=== PATIENT | male | born 1990 | race Caucasian/White ===

== ENCOUNTER 2017-12-21 18:01 | Emergency (ER) | payer OTHER ==
[2017-12-21] MEDS ORDERED: LIDOCAINE 5% (700 MG) TRANSDERMAL ADH..PATCH TP ONE (21:17)
[2017-12-21] MEDS ORDERED: KETOROLAC TROMETHAMINE 60 MG/2 ML SDV IM ONE (21:17)
--- NOTE | 2017-12-21 21:22 | ER Document Report ---
ED General - General Chief Complaint: Back Pain Stated Complaint: BACK PAIN Time Seen by Provider: 12/21/17 20:56 Notes: Patient is a 27-year-old male without chronic medical problems who presents with 3 days of right shoulder, right clavicle and right periscapular muscular pain. Describes as a throbbing, aching pain and is concerned about clicking in his shoulder when he moves the shoulder he states that he sustained an injury at work several months ago which a box fell on top of his right shoulder and crumpled him to the ground. He states that since that time he has had some discomfort to this area but that it became more concerning when he heard clicking in the right shoulder over the last several days. Nothing seemed to improve his pain and moving the shoulder worsens the pain. He does note some intermittent paresthesias over the right forearm and hand denies any loss of sensation, weakness or numbness. He has not seen his general doctor regarding today's concerns. No new injury to the area. TRAVEL OUTSIDE OF THE [place] IN LAST 30 DAYS: No - Related Data Allergies/Adverse Reactions: No Known Allergies Allergy (Unverified 12/21/17 18:05) Past Medical History - General Information source: Patient - Social History Smoking Status: Current Every Day Smoker Chew tobacco use (# tins/day): No Frequency of alcohol use: Rare Drug Abuse: None Lives with: Spouse/Significant other Family History: Reviewed & Not Pertinent Patient has suicidal ideation: No Patient has homicidal ideation: No Renal/ Medical History: Denies: Hx Peritoneal Dialysis Review of Systems - Review of Systems Notes: Constitutional: Negative for fever. HENT: Negative for sore throat. Eyes: Negative for visual changes. Cardiovascular: Negative for chest pain. Respiratory: Negative for shortness of breath. Gastrointestinal: Negative for abdominal pain, vomiting or diarrhea. Genitourinary: Negative for dysuria. Musculoskeletal: Positive for right neck and right shoulder pain Skin: Negative for rash. Neurological: Negative for headaches, weakness or numbness. 10 point ROS negative except as marked above and in HPI. Physical Exam - Vital signs Vitals: Temp Pulse Resp BP Pulse Ox 98.0 F 94 18 136/83 H 99 12/21/17 18:10 12/21/17 18:10 12/21/17 18:10 12/21/17 18:10 12/21/17 18:10 Interpretation: Normal Notes: PHYSICAL EXAMINATION: GENERAL: Well-appearing, well-nourished and in no acute distress. HEAD: Atraumatic, normocephalic. EYES: Pupils equal round and reactive to light, extraocular movements intact, sclera anicteric, conjunctiva are normal. ENT: nares patent, oropharynx clear without exudates. Moist mucous membranes. NECK: Normal range of motion, supple without lymphadenopathy LUNGS: Breath sounds clear to auscultation bilaterally and equal. No wheezes rales or rhonchi. HEART: Regular rate and rhythm without murmurs ABDOMEN: Soft, nontender, normoactive bowel sounds. No guarding, no rebound. No masses appreciated. EXTREMITIES: Normal range of motion, no pitting or edema. No cyanosis. Pain on palpation of the right trapezius, right sternomastoid and periscapular muscles. No deformity or swelling. NEUROLOGICAL: No focal neurological deficits. Moves all extremities spontaneously and on command. RMU motor and sensory distribution intact on the right. 5 out of 5 biceps and triceps strength on the right, normal on left. PSYCH: Normal mood, normal affect. SKIN: Warm, Dry, normal turgor, Course - Re-evaluation Re-evalutation: 12/21/17 21:18 Patient presents with 3-4 days of clicking in his right shoulder with associated severe pain over his trapezius, right sternal cleidomastoid and right periscapular muscles. RMU motor and sensory distribution is intact. 2+ radial pulse. 5 out of 5 biceps and triceps strength. He does have paresthesias of the forearm. Symptoms started after he had an injury at work several months ago but have become worse over the last several days. Suspect likely muscular skeletal spasming with associated nerve irritation of the shoulder girdle. Will proceed with a shoulder x-ray to ensure that there are no acute fractures and plan for conservative measures with NSAIDs and topical lidocaine. I do not clinically suspect an acute cervical spine injury, acute fracture, or any other alternative life-threatening condition at this time point based on exam and history. - Vital Signs Vital signs: Temp Pulse Resp BP Pulse Ox 98.0 F 94 18 136/83 H 99 12/21/17 18:10 12/21/17 18:10 12/21/17 18:10 12/21/17 18:10 12/21/17 18:10 - Diagnostic Test Radiology reviewed: Image reviewed, Reports reviewed Radiology results interpreted by me: 12/21/17 21:20 Right shoulder x-ray: No acute fracture or dislocation Discharge - Discharge Clinical Impression: Neck pain on right side Right shoulder pain Qualifiers: Chronicity: acute Qualified Code(s): M25.511 - Pain in right shoulder Condition: Good Disposition: HOME, SELF-CARE Additional Instructions: Your pain appears related to muscle spasms in your shoulder girdle as well as irritation of the nerves in your shoulder. For your pain: Take ibuprofen 600 mg and acetaminophen 1000 mg every 6 hours together as needed for pain. In addition to this, purchased the product that is sold [id number] cold Aspercreme with lidocaine. Apply to the affected area per bottle instructions. You should also apply heat to the area regularly using an electric heating plant pad. Return to the emergency department immediately if you develop weakness, loss of sensation, chest pain, shortness of breath, have worsening of your symptoms, or any other symptoms that are worrisome to you.
--- NOTE | 2017-12-21 21:53 | RADIOLOGY REPORT (SQ) ---
3 VIEWS OF THE RIGHT SHOULDER HISTORY: Shoulder pain. Clavicular pain. COMPARISON: None. FINDINGS/IMPRESSION: Normal bone mineralization. No acute fracture or malalignment. Joint spaces are preserved. No focal soft tissue swelling is seen.
[2017-12-21] MEDS ORDERED: NAPROXEN 250 MG TABLET PO ONE (21:59)
[2017-12-21 22:30] VITALS: BP 113/76
== END 2017-12-21 22:25 | disposition home or self-care (01) ==
LOC: ER 18:01
DX: M54.2 Cervicalgia (principal); M25.511 Pain in right shoulder; M79.1 Myalgia; R20.2 Paresthesia of skin; W20.8XXA Other cause of strike by thrown, projected or falling object, initial encounter; Y99.0 Civilian activity done for income or pay; F17.200 Nicotine dependence, unspecified, uncomplicated
CPT/HCPCS: 99283

== ENCOUNTER 2019-02-05 12:12 | Emergency (ER) | payer OTHER ==
[2019-02-05] MEDS ORDERED: LIDOCAINE 1%/EPINEPHRINE INJ 20 ML VIAL INJ ONE (12:29)
[2019-02-05] MEDS ORDERED: LIDOCAINE 4%/TETRACAINE 0.5%/EPI 0.18% 5 ML TOPICAL SOLN TOP ONE (12:30)
[2019-02-05] MEDS ORDERED: LIDOCAINE 4%/TETRACAINE 0.5%/EPI 0.18% 5 ML TOPICAL SOLN ONE (12:36)
--- NOTE | 2019-02-05 12:36 | ER Document Report ---
HPI - HPI Time Seen by Provider: 02/05/19 12:24 Pain Level: 1 Context: Patient is a 28-year-old male who presents to the emergency department with a chief complaint of a upper lip laceration. Patient reports 40 minutes prior to arrival to the emergency department he was at work when he was struck with a saw. Patient reports his tetanus shot is up-to-date. Patient reports the laceration did not go through into his mouth. Patient denies dental injury. Patient denies any other injury. Past Medical History - General Information source: Patient - Social History Smoking Status: Current Every Day Smoker Lives with: Spouse/Significant other Family History: Reviewed & Not Pertinent Patient has suicidal ideation: No Patient has homicidal ideation: No - Past Medical History Cardiac Medical History: Reports: None Pulmonary Medical History: Reports: None EENT Medical History: Reports: None Neurological Medical History: Reports: None Endocrine Medical History: Reports: None Renal/ Medical History: Reports: None. Denies: Hx Peritoneal Dialysis Malignancy Medical History: Reports None GI Medical History: Reports: None Musculoskeletal Medical History: Reports None Skin Medical History: Reports None Psychiatric Medical History: Reports: None Traumatic Medical History: Reports: None Infectious Medical History: Reports: None Surgical Hx: Negative Vertical Provider Document - CONSTITUTIONAL Agree With Documented VS: Yes Exam Limitations: No Limitations General Appearance: Mild Distress - INFECTION CONTROL TRAVEL OUTSIDE OF THE [place] IN LAST 30 DAYS: No - HEENT HEENT: Normocephalic, PERRLA Notes: Jagged upside down the laceration to the top lip that does cross the vermilion border. No active bleeding. This appears to be a total of 1.5 cm. - RESPIRATORY Respiratory: Breath Sounds Normal, No Respiratory Distress - CARDIOVASCULAR Cardiovascular: Regular Rate, Regular Rhythm - GI/ABDOMEN Gastrointestinal: Abdomen Soft, Abdomen Non-Tender - NEURO Level of Consciousness: Awake, Alert, Appropriate - DERM Integumentary: Warm, Dry, No Rash Course - Re-evaluation Re-evalutation: 02/05/19 12:33 Patient will require laceration irrigation and suture repair. We will place the patient on prophylactic antibiotic as he was cut with a 30 saw at work. 02/05/19 14:07 Laceration was repaired with [address] the patient on prophylactic antibiotics. Strict return precautions given. - Vital Signs Vital signs: Temp Pulse Resp BP Pulse Ox 65 18 123/69 99 02/05/19 12:16 02/05/19 12:16 02/05/19 12:16 02/05/19 12:16 Procedures - Laceration/Wound Repair Lower Face Time completed: 13:45 Wound length (cm): 2 Wound's Depth, Shape: Superficial, Irregular, Flap Laceration pre-procedure: Sterile PPE donned, Sterile drapes applied Anesthetic type: 1% Lidocaine w/epi Volume Anesthetic (mLs): 2 Wound explored: Clean Irrigated w/ Saline (mLs): 100 Wound Repaired With: Sutures Suture Size/Type: 6:0, Nylon Number of Sutures: 7 Adult Head Front/Back picture: 1 - Upside V shaped laceration to upper lip with skin flap in the center. Discharge - Discharge Clinical Impression: Lip laceration Qualifiers: Encounter type: initial encounter Qualified Code(s): S01.511A - Laceration without foreign body of lip, initial encounter Condition: Stable Disposition: HOME, SELF-CARE Instructions: Prophylactic Antibiotic ([facility]) Additional Instructions: LACERATION CARE: Your laceration has been sutured to keep the skin edges aligned during healing. The time of suture removal depends on the nature and location of your cut. Please follow the care instructions the doctor has outlined for you and return for further care, according to the schedule you've been given. Keep the wound and dressing clean. Unless you were told otherwise, you may shower daily, blotting the wound dry with a clean, unused towel. At other times, If the dressing gets wet or blood soaked, remove it and blot the wound dry, then reapply a new dressing. Unless you were instructed otherwise, dressings should be changed at least daily. If any signs of infection occur (swelling, redness, drainage, increasing tenderness, red streaks, tender lumps in the armpit or groin above the laceration, or fever), see the doctor immediately. SOAP CLEANSING: Gently wash the wound daily using a mild soap (like Ivory, Phisoderm, Neutrogena). Use warm water, rubbing gently until all debris, ooze, and crusting have been washed from the wound. Allow to dry briefly (about 10 minutes) after cleaning. Repeat this cleansing at least three times a day for the first two days and then once or twice a day. ANTIBIOTIC OINTMENT PROTECTION: Your wounds are such that dressing them is not practical or optional. After cleansing, you should apply a thin coating of antibiotic ointment (Bacitracin, not Neosporin) to the wounds at least three times daily. This lessens infection risk, and may decrease the amount of scarring. Use a q-tip or dull butter knife, not your finger, to apply this ointment. Any debris or ooze which builds up in the ointment should be gently rubbed off with a sterile gauze pad. Harder crusting may need to be gently scrubbed off with a clean wash cloth with soap and warm water, perhaps applying a warm, wet wash cloth to the wound for ten minutes first. Development of redness, severe itching, or blistering may mean allergy to the ointment. See the doctor. PROPHYLACTIC ANTIBIOTIC: The antibiotics which have been prescribed are designed to decrease the risk of infection. Only certain types of wounds benefit from this -- the typica l cut, scrape, or burn DOES NOT require antibiotics. Of course, infection can still occur despite the use of prophylactic antibiotics. Your wound will heal with less chance of an infectious complication if you take the medication as directed. The most important dose is the FIRST dose, so don't delay filling the prescription! FOLLOW-UP CARE: Your sutures should be removed in _5___ days. To facilitate a timely removal of your sutures, you may return to the Emergency Department at [facility]. You do not need to call for an appointment, but the best time to come in for suture removal is early in the morning. If you have been referred to another physician for follow-up care, call that physicians office for an appointment as you were instructed. If you experience a significant change in your laceration, or if you are concerned there may be an infection (swelling, redness, drainage, increasing tenderness, red streaks, tender lumps in the armpit or groin above the laceration, or fever), return to the Emergency Department immediately re-evaluation. Prescriptions: Cephalexin Monohydrate [Keflex 500 mg Capsule] 500 mg PO Q6H 5 Days capsule Forms: Return to Work Referrals: LOCALMD,NO [NO LOCAL MD] - Follow up as needed
[2019-02-05] MEDS ORDERED: LIDOCAINE 1%/EPINEPHRINE INJ 20 ML VIAL ONE (12:38)
[2019-02-05] MEDS ORDERED: CEPHALEXIN 500 MG CAPSULE PO ONE (14:03)
[2019-02-05 14:14] VITALS: BP 117/71
== END 2019-02-05 14:13 | disposition home or self-care (01) ==
LOC: ER 12:12
DX: S01.511A Laceration without foreign body of lip, initial encounter (principal); W27.8XXA Contact with other nonpowered hand tool, initial encounter; Y99.0 Civilian activity done for income or pay; F17.200 Nicotine dependence, unspecified, uncomplicated
CPT/HCPCS: 12011; J3490 ×2; 99282